=== PATIENT | male | born 1930 | race Caucasian/White ===

== ENCOUNTER 2016-12-10 05:18 | Inpatient (IN) | payer OTHER, MEDICARE ==
[~2016-12-10] VITALS: Ht 177.8 cm; Wt 90.5 kg
[2016-12-10] VITALS (7 sets, daily range): BP systolic 142–193; BP diastolic 64–92
[~2016-12-10 05:18] MED LIST: BERBERINE PO; CELERY SEED EXTRACT PO; COLCRYS0.6 MG PO; FENOFIBRATE54 M1 PO; FISH OIL 1,0001 EAC7 PO; LO-DOSE ASPIRIN81 M2 PO; MAGNESIUM400 M1 PO; PRAVASTATIN SOD20 MG PO; SAW PALMETTO500 MG PO; VITAMIN D5000 UNI1 PO
[2016-12-10] MEDS ORDERED: DOCUSATE SODIU100 MG PO (09:59)
[2016-12-10] MEDS ORDERED: ENDOCET 5-3251 EACH PO (09:59)
[2016-12-10 13:18] LABS: HEMATOCRIT 38.4 % (38.0-50.0); MCH 28.7 PG (29.0-34.0); MCV 89.7 FL (86-99); MEAN PLAT.VOLUME 12.1 uM^3 (9.0-12.4); PLATELET COUNT 158 K/uL (156-360); RBC DIS.WIDTH-CV 14.3 % (11.8-14.6); RBC DIS.WIDTH-SD 46.7 % (39-53); RED BLOOD COUNT 4.28 M/uL (4.00-5.50)
[2016-12-10 13:26] LABS: WHITE BLOOD COUNT 12.1 K/uL (4.1-10.2)
[2016-12-10 13:36] LABS: ANION GAP 9 MEQ/L (2-14); CHLORIDE 108 MEQ/L (99-109); GFR ESTIMATE (CALCULATED) 51 mL/min/; GLUCOSE 185 mg/dL (70-99); POTASSIUM 4.1 MEQ/L (3.7-5.4); SAMPLE HEMOLYSIS CHECK 0; SAMPLE ICTERIC CHECK 0; SAMPLE LIPEMIA CHECK 0; SODIUM 140 MEQ/L (136-147); UREA NITROGEN (BUN) 24 mg/dL (9-23)
[2016-12-11 03:23] VITALS: BP 166/67
[2016-12-11 06:49] LABS: HEMATOCRIT 36.6 % (38.0-50.0); MCHC 32.2 G/DL (30.0-36.0); MCV 89.9 FL (86-99); MEAN PLAT.VOLUME 12.3 uM^3 (9.0-12.4); PLATELET COUNT 180 K/uL (156-360); RBC DIS.WIDTH-CV 14.8 % (11.8-14.6); RBC DIS.WIDTH-SD 48.1 % (39-53); RED BLOOD COUNT 4.07 M/uL (4.00-5.50); WHITE BLOOD COUNT 10.3 K/uL (4.1-10.2)
[2016-12-11 07:15] LABS: ANION GAP 8 MEQ/L (2-14); CHLORIDE 108 MEQ/L (99-109); GFR ESTIMATE (CALCULATED) 44 mL/min/; GLUCOSE 133 mg/dL (70-99); POTASSIUM 4.3 MEQ/L (3.7-5.4); SAMPLE HEMOLYSIS CHECK 0; SAMPLE ICTERIC CHECK 0; SAMPLE LIPEMIA CHECK 0; SODIUM 139 MEQ/L (136-147); UREA NITROGEN (BUN) 22 mg/dL (9-23)
[2016-12-11 08:01] VITALS: BP 165/66
[2016-12-11 11:35] VITALS: BP 150/71
[2016-12-11 15:53] VITALS: BP 155/50
[2016-12-11 19:35] VITALS: BP 158/66
[2016-12-11 22:51] VITALS: BP 178/80
[2016-12-12 03:25] VITALS: BP 147/66
[2016-12-12 06:48] LABS: EOSINOPHIL (%) 0.5 % (0-5); EOSINOPHIL COUNT 0.1 K/uL (0-0.3); IMMATURE GRANULOCYTE (%) 0.3 % (0.0-0.7); LYMPHOCYTE COUNT 0.9 K/uL (1.0-2.8); MCH 29.5 PG (29.0-34.0); MCHC 31.9 G/DL (30.0-36.0); MCV 92.3 FL (86-99); MEAN PLAT.VOLUME 12.7 uM^3 (9.0-12.4); MONOCYTE (%) 9.2 % (3-12); MONOCYTE COUNT 1.1 K/uL (0-0.8); NEUTROPHIL (%) 82.1 % (45-76); NEUTROPHIL COUNT 9.8 K/uL (1.8-6.4); PLATELET COUNT 176 K/uL (156-360); RBC DIS.WIDTH-SD 50.8 % (39-53); WHITE BLOOD COUNT 11.9 K/uL (4.1-10.2)
[2016-12-12 07:15] LABS: ANION GAP 8 MEQ/L (2-14); CHLORIDE 109 MEQ/L (99-109); GFR ESTIMATE (CALCULATED) 38 mL/min/; GLUCOSE 127 mg/dL (70-99); POTASSIUM 4.5 MEQ/L (3.7-5.4); SAMPLE HEMOLYSIS CHECK 0; SAMPLE ICTERIC CHECK 0; SAMPLE LIPEMIA CHECK 0; SODIUM 139 MEQ/L (136-147); UREA NITROGEN (BUN) 20 mg/dL (9-23)
[2016-12-12 07:26] VITALS: BP 168/58
[2016-12-12 11:55] VITALS: BP 170/58
[2016-12-12 15:27] VITALS: BP 168/66
[2016-12-12 19:30] VITALS: BP 150/74
[2016-12-12 23:34] VITALS: BP 132/64; BP 98/53
[2016-12-13 03:36] VITALS: BP 170/60
[2016-12-13 06:54] LABS: MCH 29.6 PG (29.0-34.0); MCHC 32.6 G/DL (30.0-36.0); MCV 90.7 FL (86-99); MEAN PLAT.VOLUME 12.5 uM^3 (9.0-12.4); PLATELET COUNT 175 K/uL (156-360); RBC DIS.WIDTH-CV 14.7 % (11.8-14.6); RBC DIS.WIDTH-SD 48.7 % (39-53); RED BLOOD COUNT 3.75 M/uL (4.00-5.50); WHITE BLOOD COUNT 11.1 K/uL (4.1-10.2)
[2016-12-13 07:20] LABS: ANION GAP 9 MEQ/L (2-14); CHLORIDE 105 MEQ/L (99-109); GFR ESTIMATE (CALCULATED) 41 mL/min/; GLUCOSE 157 mg/dL (70-99); POTASSIUM 4.1 MEQ/L (3.7-5.4); SAMPLE HEMOLYSIS CHECK 0; SAMPLE ICTERIC CHECK 0; SAMPLE LIPEMIA CHECK 0; SODIUM 135 MEQ/L (136-147); UREA NITROGEN (BUN) 23 mg/dL (9-23)
[2016-12-13 08:21] VITALS: BP 146/76
[2016-12-13 11:14] VITALS: BP 134/64
[2016-12-13 16:01] VITALS: BP 146/62
[2016-12-13 19:59] VITALS: BP 140/64
[2016-12-13 23:35] VITALS: BP 133/73
[2016-12-14 03:05] VITALS: BP 140/62
[2016-12-14 09:05] VITALS: BP 134/54
[2016-12-14 15:44] LABS: INTER. NORMALIZED RATIO 1.2; PROTHROMBIN TIME 12.2 (9.2-11.2)
[2016-12-14 17:46] VITALS: BP 130/51
[2016-12-14 23:11] VITALS: BP 164/59
[2016-12-15 04:36] LABS: EOSINOPHIL (%) 4.5 % (0-5); EOSINOPHIL COUNT 0.5 K/uL (0-0.3); HEMATOCRIT 33.3 % (38.0-50.0); IMMATURE GRANULOCYTE (%) 0.2 % (0.0-0.7); IMMATURE GRANULOCYTE COUNT 0.2 K/uL; MCH 28.9 PG (29.0-34.0); MCV 87.6 FL (86-99); MEAN PLAT.VOLUME 11.8 uM^3 (9.0-12.4); MONOCYTE (%) 10.5 % (3-12); MONOCYTE COUNT 1.1 K/uL (0-0.8); NEUTROPHIL (%) 74.4 % (45-76); NEUTROPHIL COUNT 7.6 K/uL (1.8-6.4); PLATELET COUNT 203 K/uL (156-360); WHITE BLOOD COUNT 10.2 K/uL (4.1-10.2)
[2016-12-15 04:46] LABS: CHLORIDE 105 mEq/L (99-109); POTASSIUM 3.9 mEq/L (3.7-5.4); SODIUM 132 mEq/L (136-147)
[2016-12-15 04:48] LABS: GLUCOSE 137 mg/dL (70-99)
[2016-12-15 04:49] LABS: ANION GAP 7 MEQ/L (2-14)
[2016-12-15 04:52] LABS: GFR ESTIMATE (CALCULATED) 38 mL/min/
[2016-12-15 04:53] LABS: UREA NITROGEN (BUN) 31 mg/dL (9-23)
[2016-12-15 07:18] VITALS: BP 140/50
[2016-12-15 15:46] VITALS: BP 142/60
[2016-12-15 20:15] VITALS: BP 132/58
[2016-12-15 23:54] VITALS: BP 140/56
[2016-12-16 02:34] VITALS: BP 142/52
[2016-12-16 06:30] LABS: EOSINOPHIL (%) 4.9 % (0-5); EOSINOPHIL COUNT 0.4 K/uL (0-0.3); HEMATOCRIT 32.5 % (38.0-50.0); IMMATURE GRANULOCYTE (%) 0.3 % (0.0-0.7); LYMPHOCYTE COUNT 0.9 K/uL (1.0-2.8); MCHC 33.2 G/DL (30.0-36.0); MCV 87.4 FL (86-99); MEAN PLAT.VOLUME 11.8 uM^3 (9.0-12.4); NEUTROPHIL (%) 72.7 % (45-76); NEUTROPHIL COUNT 6.3 K/uL (1.8-6.4); PLATELET COUNT 207 K/uL (156-360); RBC DIS.WIDTH-CV 14.1 % (11.8-14.6); RBC DIS.WIDTH-SD 45.3 % (39-53); RED BLOOD COUNT 3.72 M/uL (4.00-5.50); WHITE BLOOD COUNT 8.7 K/uL (4.1-10.2)
[2016-12-16 06:55] LABS: ANION GAP 8 MEQ/L (2-14); CHLORIDE 104 MEQ/L (99-109); GFR ESTIMATE (CALCULATED) 38 mL/min/; GLUCOSE 120 mg/dL (70-99); POTASSIUM 3.9 MEQ/L (3.7-5.4); SAMPLE HEMOLYSIS CHECK 0; SAMPLE ICTERIC CHECK 0; SAMPLE LIPEMIA CHECK 0; SODIUM 136 MEQ/L (136-147); UREA NITROGEN (BUN) 36 mg/dL (9-23)
[2016-12-16 07:45] VITALS: BP 132/42
[2016-12-16 16:52] VITALS: BP 140/49
[2016-12-16 22:33] VITALS: BP 140/52
[2016-12-17 03:46] VITALS: BP 160/50
[2016-12-17 07:23] LABS: EOSINOPHIL (%) 4.3 % (0-5); EOSINOPHIL COUNT 0.4 K/uL (0-0.3); HEMATOCRIT 32.1 % (38.0-50.0); IMMATURE GRANULOCYTE (%) 0.2 % (0.0-0.7); LYMPHOCYTE COUNT 0.9 K/uL (1.0-2.8); MCH 29.2 PG (29.0-34.0); MCHC 33.3 G/DL (30.0-36.0); MCV 87.7 FL (86-99); MEAN PLAT.VOLUME 11.9 uM^3 (9.0-12.4); MONOCYTE (%) 10.5 % (3-12); NEUTROPHIL (%) 74.7 % (45-76); PLATELET COUNT 249 K/uL (156-360); RBC DIS.WIDTH-CV 14.2 % (11.8-14.6); RBC DIS.WIDTH-SD 45.2 % (39-53); RED BLOOD COUNT 3.66 M/uL (4.00-5.50); WHITE BLOOD COUNT 9.3 K/uL (4.1-10.2)
[2016-12-17 07:41] VITALS: BP 120/58
[2016-12-17 07:44] LABS: ANION GAP 9 MEQ/L (2-14); CHLORIDE 104 MEQ/L (99-109); GFR ESTIMATE (CALCULATED) 44 mL/min/; GLUCOSE 141 mg/dL (70-99); SAMPLE HEMOLYSIS CHECK 0; SAMPLE ICTERIC CHECK 0; SAMPLE LIPEMIA CHECK 0; SODIUM 137 MEQ/L (136-147); UREA NITROGEN (BUN) 35 mg/dL (9-23)
[2016-12-17 10:25] VITALS: BP 130/60
[2016-12-17 16:38] VITALS: BP 130/62
[2016-12-17 19:36] VITALS: BP 114/52
[2016-12-17 23:08] VITALS: BP 140/62
[2016-12-18 03:08] VITALS: BP 138/62
[2016-12-18 08:25] VITALS: BP 140/56
[2016-12-18] MEDS ORDERED: ELIQUIS2.5 MG PO (09:37)
[2016-12-18 16:15] VITALS: BP 132/38
[2016-12-18 20:23] VITALS: BP 150/58
[2016-12-18 23:03] VITALS: BP 1175/50; BP 155/60
[2016-12-18 23:50] VITALS: BP 162/66
[2016-12-19 07:49] LABS: HEMATOCRIT 34.6 % (38.0-50.0); MCH 29.3 PG (29.0-34.0); MCHC 33.5 G/DL (30.0-36.0); MCV 87.4 FL (86-99); MEAN PLAT.VOLUME 11.2 uM^3 (9.0-12.4); PLATELET COUNT 293 K/uL (156-360); RBC DIS.WIDTH-CV 14.4 % (11.8-14.6); RBC DIS.WIDTH-SD 45.9 % (39-53); RED BLOOD COUNT 3.96 M/uL (4.00-5.50); WHITE BLOOD COUNT 7.8 K/uL (4.1-10.2)
[2016-12-19 08:08] VITALS: BP 148/58
[2016-12-19 11:39] VITALS: BP 145/55
== END 2016-12-19 15:21 | DRG 657 ==
LOC: 5EAST 05:18 → 2SOUTH 05:18 → 5EAST 13:25 → 2SOUTH 14:55 → 5EAST 12-19 15:21
PROVIDERS: Internal Medicine; Physician Assistant; Urology
DX: C64.2 Malignant neoplasm of left kidney, except renal pelvis (principal); N17.9 Acute kidney failure, unspecified; I82.811 Embolism and thrombosis of superficial veins of right lower extremity; J98.11 Atelectasis; I12.9 Hypertensive chronic kidney disease with stage 1 through stage 4 chronic kidney disease, or unspecified chronic kidney disease; I25.10 Atherosclerotic heart disease of native coronary artery without angina pectoris; N18.9 Chronic kidney disease, unspecified; E11.9 Type 2 diabetes mellitus without complications; E78.5 Hyperlipidemia, unspecified; R79.89 Other specified abnormal findings of blood chemistry; M10.9 Gout, unspecified; R26.9 Unspecified abnormalities of gait and mobility; M79.604 Pain in right leg; K59.00 Constipation, unspecified; Z79.82 Long term (current) use of aspirin; Z87.891 Personal history of nicotine dependence
CPT/HCPCS: 73630; 80048; 84550; 85025; 85027; 85610; 85730; 88309; 93970; 94799; 97530 GO; 97530 GP; J0330; J0360; J0690; J1170; J1644; J1940; J2405; J2710; J2765; J3010; J7030